=== PATIENT | male | born 1990 ===

== ENCOUNTER 2017-08-13 08:39 | Emergency (ER) | payer OTHER ==
[~2017-08-13] VITALS: Ht 165.1 cm; Wt 89.0 kg
[2017-08-13 08:41] VITALS: Ht 165.1 cm; Wt 89.0 kg
--- NOTE | 2017-08-13 09:15 | RADRPT ---
PROCEDURE: XR Chest. CLINICAL INDICATION: Chest pain. TECHNIQUE: Single frontal view. COMPARISON: None. FINDINGS: The lungs are clear. The heart size is normal. There is no pleural effusion. There is no pneumothorax. IMPRESSION: 1. Normal chest radiograph. RPTAT: QQ .Emanuel Solomon MD, Date Time Electronically viewed and signed by .Emanuel Solomon MD, on 08/13/2017 09:14 .R/
[2017-08-13 09:36] VITALS: BP 128/71; PULSE 72; RESP 18
--- NOTE | 2017-08-13 10:25 | ERD ---
ER Documentation Chief Complaint Chief Complaint RT SIDE CHEST PAIN , HURTS MORE WITH DEEP BREATH HPI 26-year-old male presents with right-sided and mid chest pain that started last night worse when he takes deep breath in or coughs. Pain is noted when he tries to move, otherwise he has no pain, it is described as sharp and moderate. He denies shortness of breath, dizziness, syncope with this. When asked how long he has had his he states that she has had this for "forever" but has not seen a strawhat inspector and packer. He admits to having had her red bull, followed by alcohol and he smokes marijuana. He denies methamphetamine, crack or cocaine use. ROS All systems reviewed and are negative except as per history of present illness. PMhx/Soc Hx Psychiatric Problems: Yes (SCHITZOPHRENIA) Hx Alcohol Use: Yes (DRANK LAST NIGHT) Hx Substance Use: Yes (CANNABIS) Hx Tobacco Use: Yes Smoking Status: Current some day smoker Physical Exam Vitals Vital Signs Date Time Temp Pulse Resp B/P Pulse Ox O2 Delivery O2 Flow Rate FiO2 08/13/17 09:36 72 18 128/71 98 Room Air 08/13/17 08:41 98.1 80 18 123/71 98 Physical Exam = General: Well-developed, well-nourished. The patient appears in no acute distress. HEENT: Head is normocephalic, atraumatic. No scleral icterus. Neck: Supple. Nontender. Lungs: Clear to auscultation. Normal air movement. Heart: Regular rate and rhythm. S1 and S2 are normal. No murmurs, gallops, or rubs. Abdomen: Soft, nontender, nondistended. Bowel sounds are normoactive. Extremities: No clubbing or cyanosis. Normal pulses. Moving extremities x 4. No weakness. Neurologic: Alert and oriented 3. No focal deficits. Skin: Normal turgor. No rash or lesions. Results 24 hrs 12-lead EKG(interpreted by supervising physician): Rate/Rhythm: Normal Sinus Rhythm, rate of 77 QRS, ST, T-waves: No changes consistent w/ acute ischemia, no intervals, no dysrhythmias, no ectopy Impression: No evidence of ischemia or arrhythmia Chest X-ray 1V Interpreted by me: Soft Tissue: No acute abnormalities Bones: No acute abnormalities Mediastinum/Cardiac Silhouette/Lungs: No acute abnormalities Procedures/MDM 26-year-old male presents with chest pain that has been ongoing for several years and has been recurrent. He was started how long night of partying with energy drinks followed by drinking alcohol and smoking marijuana., No dysrhythmias and chest x-ray is normal. There is no evidence of pneumonia, pneumothorax, widened mediastinum. Suspicion for acute coronary syndrome, dissection and pulmonary embolus are low. His states that the symptoms have been occurring for some time now and he has not seen a strawhat inspector and packer. Was advised that he should follow-up with the primary care doctor, and get further evaluation and reevaluation from cardiology which can be done outpatient. Departure Diagnosis: Primary Impression: Chest pain Condition: Good Patient Instructions: Chest Pain, Uncertain Cause Referrals: [facility] YOU HAVE RECEIVED A MEDICAL SCREENING EXAM AND THE RESULTS INDICATE THAT YOU DO NOT HAVE A CONDITION THAT REQUIRES URGENT TREATMENT IN THE EMERGENCY DEPARTMENT. FURTHER EVALUATION AND TREATMENT OF YOUR CONDITION CAN WAIT UNTIL YOU ARE SEEN IN YOUR DOCTORS OFFICE WITHIN THE NEXT 1-2 DAYS. IT IS YOUR RESPONSIBILITY TO MAKE AN APPOINTMENT FOR [facility]. IF YOU HAVE A PRIMARY DOCTOR --you should call your primary doctor and schedule an appointment IF YOU DO NOT HAVE A PRIMARY DOCTOR YOU CAN CALL OUR PHYSICIAN REFERRAL HOTLINE AT IF YOU CAN NOT AFFORD TO SEE A PHYSICIAN YOU CAN CHOSE FROM THE FOLLOWING [facility] [address] [facility]. [facility] [address] [facility]. [facility] [address] [facility] [facility] [address] [facility] [facility] [address] [facility]. [facility]. [address] [facility]. [facility] YOU HAVE RECEIVED A MEDICAL SCREENING EXAM AND THE RESULTS INDICATE THAT YOU DO NOT HAVE A CONDITION THAT REQUIRES URGENT TREATMENT IN THE EMERGENCY DEPARTMENT. FURTHER EVALUATION AND TREATMENT OF YOUR CONDITION CAN WAIT UNTIL YOU ARE SEEN IN YOUR DOCTORS OFFICE WITHIN THE NEXT 1-2 DAYS. IT IS YOUR RESPONSIBILITY TO MAKE AN APPOINTMENT FOR [facility]. IF YOU HAVE A PRIMARY DOCTOR --you should call your primary doctor and schedule and appointment IF YOU DO NOT HAVE A PRIMARY DOCTOR YOU CAN CALL OUR PHYSICIAN REFERRAL HOTLINE AT . IF YOU CAN NOT AFFORD TO SEE A PHYSICIAN YOU CAN CHOSE FROM THE FOLLOWING [facility] INSTITUTIONS: [facility] [address] [place] [address] [facility] [address] [place], [place] [id number] [place] [address] [address] [place] [address] [facility] URGENT C[facility]/SPECIALTIES Additional Instructions: Call your primary care doctor TOMORROW for an appointment during the next 1-2 days.See the doctor sooner or return here if your condition worsens before your appointment time. OPAL GALVAN PA-C Aug 13, 2017 10:25
== END 2017-08-13 09:51 | disposition home or self-care (01) ==
LOC: FTE 08:39
DX: R07.9 Chest pain, unspecified (principal); F17.210 Nicotine dependence, cigarettes, uncomplicated
CPT/HCPCS: 71010; 93005